=== PATIENT | female | born 1985 | race American Indian/Alaskan Native ===

== ENCOUNTER 2016-12-09 11:51 | Emergency (ER) | payer OTHER ==
--- NOTE | 2016-12-09 12:48 | Emergency Department Report ---
Chief Complaint: Abdominal Pain Stated Complaint: DEHYDRATION/ABD PN/AURELIO/SOB/EMESIS Time Seen by Provider: 12/09/16 12:43 - HPI History of Present Illness: PT states she has been throwing up. PT states she is . pt has a hx of htn while . - ROS Review of Systems: - vaginal bleeding + sob - Exam Physical Exam: PT looks well, non toxic. abd soft, RUQ ttp MSE screening note: Focused history and physical exam performed. Due to findings the following was ordered: labs, us, ekg ED Disposition for MSE Condition: Stable
[2016-12-09 13:16] LABS: Basophils % (Auto) 0.5 % (0.0-1.8); Eosinophils % (Auto) 0.6 % (0.0-4.3); Hematocrit 38.8 % (30.3-42.9); Hemoglobin 12.9 gm/dl (10.1-14.3); Mean Corpuscular HGB Conc 33 % (30-34); Mean Corpuscular Hemoglobin 31 pg (28-32); Mean Corpuscular Volume 94 fl (79-97); Platelet Count 309 K/mm3 (140-440); Red Blood Count 4.13 M/mm3 (3.65-5.03); Red Cell Distribution Width 13.7 % (13.2-15.2); White Blood Count 8.3 K/mm3 (4.5-11.0)
[2016-12-09 13:28] LABS: Alanine Aminotransferase 15 units/L (7-56); Albumin/Globulin Ratio 1.1 %; Alkaline Phosphatase 42 units/L (35-129); Anion Gap 19 mmol/L; Blood Urea Nitrogen 7 mg/dL (7-17); Calcium 9.1 mg/dL (8.4-10.2); Carbon Dioxide 19 mmol/L (22-30); Chloride 97.7 mmol/L (98-107); Glucose 95 mg/dL (65-100); Potassium 3.7 mmol/L (3.6-5.0); Sodium 132 mmol/L (137-145); Total Protein 7.7 g/dL (6.3-8.2)
[2016-12-09 14:42] VITALS: BP 132/86
--- NOTE | 2016-12-09 14:54 | Ultrasound Report ---
ULTRASOUND OB LESS THAN 14 WEEKS FETUS ULTRASOUND OB TRANSVAGINAL HISTORY: Pain during . TECHNIQUE: Transabdominal and transvaginal ultrasound imaging. FINDINGS: The uterus is anteverted and measures 9 x 6 x 7 cm. Normal cervix. An intrauterine gestational sac containing a pole and yolk sac is identified. heart rate measures 177 beats per minute. [place]-rump length measures 20.4 mm which correlates with an 8 week, 4 day . Estimated date 07/17/17. No subchorionic hemorrhage is appreciated. A 1.4 cm simple cyst is noted within the right ovary. The left ovary is within normal limits. No pelvic fluid collection. IMPRESSION: Viable, single intrauterine as described. No acute abnormality is detected. 1.4 cm right ovarian cyst.
[2016-12-09 14:57] LABS: Bacteria,Urine 1+ /HPF (Negative); Bilirubin,Urine NEG (Negative); Blood,Urine MOD (Negative); Ketones,Urine 80 mg/dL (Negative); Leukocyte Esterase,Urine MOD (Negative); Mucus,Urine 3+ /HPF; Nitrite,Urine NEG (Negative)
[2016-12-09] MEDS ORDERED: ZOFRAN IV ONE (15:15)
[2016-12-09] MEDS ORDERED: NACL 0.9% 1000 ML 1,000 ML IV ONE (15:15)
[2016-12-09] MEDS ORDERED: PROVENTIL IH ONE (15:16)
[2016-12-09] MEDS ORDERED: ROCEPHIN/NS 1 GM/50 ML 1 GM/50 ML BAG IV ONE (15:16)
--- NOTE | 2016-12-09 15:17 | Emergency Department Report ---
ED General Adult HPI - General Chief complaint: Dyspnea/Respdistress Stated complaint: DEHYDRATION/ABD PN/AURELIO/SOB/EMESIS Time Seen by Provider: 12/09/16 12:43 Source: patient Mode of arrival: Ambulatory Limitations: No Limitations - History of Present Illness Initial comments: Patient is a 31-year-old female at 8 weeks who presents with nausea vomiting and difficulty breathing. Patient states that her symptoms started yesterday. She states that her shortness of breath is moderate and her nausea and vomiting is severe. She states that she cannot keep anything down. Her shortness of breath started when she started vomiting. And shortness of breath is at rest patient has not tried any [id number] medications for her symptoms. Nothing makes her symptoms better or worse. She denies being in any abdominal pain. She states that she is had nonbloody nonbilious vomiting. She denies having any vaginal discharge or any vaginal bleeding. - Related Data Previous Rx's Medication Instructions Recorded Last Taken Type Doxylamine Succinate [Unisom] 25 mg PO Q6HR PRN #30 tablet 12/09/16 Unknown Rx Nitrofurantoin [place]/M-Cryst 100 mg PO Q12HR #14 capsule 12/09/16 Unknown Rx [Macrobid CAP] Pyridoxine [Vitamin B-6] 50 mg PO BID PRN #30 tablet 12/09/16 Unknown Rx Allergies Allergy/AdvReac Type Severity Reaction Status Date / Time No Known Allergies Allergy Unverified 03/31/16 11:15 ED Review of Systems ROS: Stated complaint: DEHYDRATION/ABD PN/AURELIO/SOB/EMESIS Other details as noted in HPI Constitutional: denies: chills, fever Eyes: denies: eye pain, eye discharge, vision change ENT: denies: ear pain, throat pain Respiratory: SOB at rest. denies: cough, shortness of breath, wheezing Cardiovascular: denies: chest pain, palpitations Endocrine: no symptoms reported Gastrointestinal: nausea. denies: abdominal pain, diarrhea Genitourinary: denies: urgency, dysuria, discharge Musculoskeletal: denies: back pain, joint swelling, arthralgia Skin: denies: rash, lesions Neurological: denies: headache, weakness, paresthesias Psychiatric: denies: anxiety, depression Hematological/Lymphatic: denies: easy bleeding, easy bruising ED Past Medical Hx - Past Medical History Previous Medical History?: Yes Additional medical history: colitis,ovarian cyst, Vaginal delivery x 2 - Surgical History Past Surgical History?: Yes Additional Surgical History: tonsillectomy - Social History Smoking Status: Current Some Day Smoker Substance Use Type: Alcohol, Marijuana - Medications Home Medications: Home Medications Medication Instructions Recorded Confirmed Last Taken Type Doxylamine Succinate [Unisom] 25 mg PO Q6HR PRN #30 tablet 12/09/16 Unknown Rx Nitrofurantoin [place]/M-Cryst 100 mg PO Q12HR #14 capsule 12/09/16 Unknown Rx [Macrobid CAP] Pyridoxine [Vitamin B-6] 50 mg PO BID PRN #30 tablet 12/09/16 Unknown Rx ED Physical Exam - General Limitations: No Limitations General appearance: alert, in no apparent distress - Head Head exam: Present: atraumatic, normocephalic - Eye Eye exam: Present: normal appearance - ENT ENT exam: Present: mucous membranes dry - Neck Neck exam: Present: normal inspection - Respiratory Respiratory exam: Present: normal lung sounds bilaterally, accessory muscle use. Absent: respiratory distress - Cardiovascular Cardiovascular Exam: Present: regular rate, normal rhythm. Absent: systolic murmur, diastolic murmur, rubs, gallop - GI/Abdominal GI/Abdominal exam: Present: soft, normal bowel sounds - Extremities Exam Extremities exam: Present: normal inspection - Back Exam Back exam: Present: normal inspection - Neurological Exam Neurological exam: Present: alert, oriented X3 - Psychiatric Psychiatric exam: Present: normal affect, normal mood - Skin Skin exam: Present: warm, dry, intact, normal color. Absent: rash ED Course Vital Signs 12/09/16 12/09/16 12/09/16 12:44 14:41 15:09 Temperature 98.4 F Pulse Rate 74 86 Pulse Rate [ Anterior Bilateral Throughout] Pulse Rate [ Bilateral Throughout] Respiratory 20 22 Rate Respiratory Rate [Anterior Bilateral Throughout] Respiratory Rate [Bilateral Throughout] Blood Pressure 131/110 Blood Pressure 132/86 [Left] O2 Sat by Pulse 100 100 100 Oximetry 12/09/16 12/09/16 15:38 16:07 Temperature Pulse Rate Pulse Rate [ 64 Anterior Bilateral Throughout] Pulse Rate [ 72 Bilateral Throughout] Respiratory Rate Respiratory 20 Rate [Anterior Bilateral Throughout] Respiratory 20 Rate [Bilateral Throughout] Blood Pressure Blood Pressure [Left] O2 Sat by Pulse Oximetry - Reevaluation(s) Reevaluation #1: 12/09/16 18:38 She is feeling better after fluids and breathing treatment. I will send patient home with Macrobid for her urinary tract infection. ED Medical Decision Making - Lab Data Result diagrams: 12/09/16 12:51 12/09/16 12:51 Lab Results 12/09/16 12/09/16 12/09/16 Range/Units 12:51 12:51 12:51 WBC 8.3 (4.5-11.0) K/mm3 RBC 4.13 (3.65-5.03) M/mm3 Hgb 12.9 (10.1-14.3) gm/dl Hct 38.8 (30.3-42.9) % MCV 94 (79-97) fl MCH 31 (28-32) pg MCHC 33 (30-34) % RDW 13.7 (13.2-15.2) % Plt Count 309 (140-440) K/mm3 Lymph % (Auto) 23.1 (13.4-35.0) % [place] % (Auto) 7.7 H (0.0-7.3) % Eos % (Auto) 0.6 (0.0-4.3) % Baso % (Auto) 0.5 (0.0-1.8) % Lymph # 1.9 (1.2-5.4) K/mm3 [place] # 0.6 (0.0-0.8) K/mm3 Eos # 0.0 (0.0-0.4) K/mm3 Baso # 0.0 (0.0-0.1) K/mm3 Seg Neutrophils % 68.1 (40.0-70.0) % Seg Neutrophils # 5.6 (1.8-7.7) K/mm3 Sodium 132 L (137-145) mmol/L Potassium 3.7 (3.6-5.0) mmol/L Chloride 97.7 L (98-107) mmol/L Carbon Dioxide 19 L (22-30) mmol/L Anion Gap 19 mmol/L BUN 7 (7-17) mg/dL Creatinine 0.5 L (0.7-1.2) mg/dL Estimated GFR > 60 ml/min BUN/Creatinine Ratio 14.00 % Glucose 95 (65-100) mg/dL Calcium 9.1 (8.4-10.2) mg/dL Total Bilirubin 0.60 (0.1-1.2) mg/dL AST 15 (5-40) units/L ALT 15 (7-56) units/L Alkaline Phosphatase 42 (35-129) units/L Total Protein 7.7 (6.3-8.2) g/dL Albumin 4.0 (3.9-5) g/dL Albumin/Globulin Ratio 1.1 % Lipase (13-60) units/L HCG, Quant (0-4) mIU/mL Urine Color (Yellow) Urine Turbidity (Clear) Urine pH (5.0-7.0) Ur Specific [place] (1.003-1.030) Urine Protein (Negative) mg/dL Urine Glucose (UA) (Negative) mg/dL Urine Ketones (Negative) mg/dL Urine Blood (Negative) Urine Nitrite (Negative) Urine Bilirubin (Negative) Urine Urobilinogen (<2.0) mg/dL Ur Leukocyte Esterase (Negative) Urine WBC (Auto) (0.0-6.0) /HPF Urine RBC (Auto) (0.0-6.0) /HPF U Epithel Cells (Auto) (0-13.0) /HPF Urine Bacteria (Auto) (Negative) /HPF Urine Mucus /HPF Blood Type O POSITIVE 12/09/16 12/09/16 12/09/16 Range/Units 12:51 12:51 14:03 WBC (4.5-11.0) K/mm3 RBC (3.65-5.03) M/mm3 Hgb (10.1-14.3) gm/dl Hct (30.3-42.9) % MCV (79-97) fl MCH (28-32) pg MCHC (30-34) % RDW (13.2-15.2) % Plt Count (140-440) K/mm3 Lymph % (Auto) (13.4-35.0) % [place] % (Auto) (0.0-7.3) % Eos % (Auto) (0.0-4.3) % Baso % (Auto) (0.0-1.8) % Lymph # (1.2-5.4) K/mm3 [place] # (0.0-0.8) K/mm3 Eos # (0.0-0.4) K/mm3 Baso # (0.0-0.1) K/mm3 Seg Neutrophils % (40.0-70.0) % Seg Neutrophils # (1.8-7.7) K/mm3 Sodium (137-145) mmol/L Potassium (3.6-5.0) mmol/L Chloride (98-107) mmol/L Carbon Dioxide (22-30) mmol/L Anion Gap mmol/L BUN (7-17) mg/dL Creatinine (0.7-1.2) mg/dL Estimated GFR ml/min BUN/Creatinine Ratio % Glucose (65-100) mg/dL Calcium (8.4-10.2) mg/dL Total Bilirubin (0.1-1.2) mg/dL AST (5-40) units/L ALT (7-56) units/L Alkaline Phosphatase (35-129) units/L Total Protein (6.3-8.2) g/dL Albumin (3.9-5) g/dL Albumin/Globulin Ratio % Lipase 21 (13-60) units/L HCG, Quant 13438 H (0-4) mIU/mL Urine Color Yellow (Yellow) Urine Turbidity Slightly-cloudy (Clear) Urine pH 6.0 (5.0-7.0) Ur Specific [place] 1.032 H (1.003-1.030) Urine Protein 30 mg/dl (Negative) mg/dL Urine Glucose (UA) Neg (Negative) mg/dL Urine Ketones 80 (Negative) mg/dL Urine Blood Mod (Negative) Urine Nitrite Neg (Negative) Urine Bilirubin Neg (Negative) Urine Urobilinogen 4.0 (<2.0) mg/dL Ur Leukocyte Esterase Mod (Negative) Urine WBC (Auto) 8.0 H (0.0-6.0) /HPF Urine RBC (Auto) 11.0 (0.0-6.0) /HPF U Epithel Cells (Auto) 11.0 (0-13.0) /HPF Urine Bacteria (Auto) 1+ (Negative) /HPF Urine Mucus 3+ /HPF Blood Type - EKG Data -: EKG Interpreted by Pa - EKG Data 12/09/16 18:52 EKG shows normal sinus rhythm and normal axis and no ST segment elevations or T- wave inversions. - Radiology Data Radiology results: report reviewed, image reviewed Transvaginal ultrasound: Shows intrauterine at 8 weeks, viable - Medical Decision Making Chief medical diagnosis: Hyperemesis gravidarum Differential medical diagnosis: Urinary tract infection, asthma exacerbation, , ectopic His CBC, CMP, urinalysis, transvaginal ultrasound, IV fluids, IV antibiotics, breathing treatment Patient's laboratory findings are consistent with dehydration her transvaginal ultrasound shows no ectopic and a viable intrauterine . She is feeling better after fluids I will send patient home with Faith and Corin. Critical care attestation.: If time is entered above; I have spent that time in minutes in the direct care of this critically ill patient, excluding procedure time. ED Disposition Clinical Impression: Shortness of breath with , First trimester Urinary tract infection Qualifiers: Urinary tract infection type: acute cystitis Hematuria presence: without hematuria Qualified Code(s): N30.00 - Acute cystitis without hematuria Nausea and vomiting Qualifiers: Vomiting type: unspecified Vomiting Intractability: non-intractable Qualified Code(s): R11.2 - Nausea with vomiting, unspecified Disposition: DC-01 TO HOME OR SELFCARE Is pt being admited?: No Does the pt Need Aspirin: No Condition: Stable Instructions: Morning Sickness (ED), Hyperemesis Gravidarum (ED), (ED ) Prescriptions: Doxylamine Succinate [Unisom] 25 mg PO Q6HR PRN #30 tablet PRN Reason: Nausea Nitrofurantoin [place]/M-Cryst [Macrobid CAP] 100 mg PO Q12HR #14 capsule Pyridoxine [Vitamin B-6] 50 mg PO BID PRN #30 tablet PRN Reason: Nausea Referrals: JANNETH PATTERSON MD [Staff Physician] - 3-5 Days
== END 2016-12-09 19:27 | disposition home or self-care (01) ==
LOC: ED 11:51
DX: O21.9 Vomiting of pregnancy, unspecified (principal); O23.31 Infections of other parts of urinary tract in pregnancy, first trimester; O99.511 Diseases of the respiratory system complicating pregnancy, first trimester; Z3A.08 8 weeks gestation of pregnancy; R06.02 Shortness of breath; N30.00 Acute cystitis without hematuria; R11.0 Nausea; F17.200 Nicotine dependence, unspecified, uncomplicated; F12.10 Cannabis abuse, uncomplicated
CPT/HCPCS: 36415; 76801; 76817; 80053; 81001; 83690; 84702; 85025; 86900; 86901; 93005; 93010; 94640; 96365; 96375; 99284; J0696; J2405; J7030

== ENCOUNTER 2017-01-28 09:55 | Emergency (ER) | payer MEDICAID, OTHER ==
[2017-01-28 10:06] VITALS: BP 120/86
--- NOTE | 2017-01-28 10:06 | Emergency Department Report ---
Stated Complaint: ABD PAIN/15 WKS PREG. Time Seen by Provider: 01/28/17 10:02 - HPI History of Present Illness: PT states she is 15 weeks . PT states she has had lower abd pain x a couple of days. PT states her urine is dark. PT has not seen PRESIDENT AND CMO yet, first appointment is on Friday. - ROS Review of Systems: - fever + chill (After drinking cold water) -dysuria - vaginal bleeding - Exam Physical Exam: pt looks well, non toxic lower abd tenderness MSE screening note: Focused history and physical exam performed. Due to findings the following was ordered: labs, us ED Disposition for MSE Condition: Stable
[2017-01-28 10:26] LABS: Basophils % (Auto) 0.5 % (0.0-1.8); Eosinophils % (Auto) 1.2 % (0.0-4.3); Hematocrit 36.7 % (30.3-42.9); Hemoglobin 12.3 gm/dl (10.1-14.3); Mean Corpuscular HGB Conc 34 % (30-34); Mean Corpuscular Hemoglobin 32 pg (28-32); Mean Corpuscular Volume 94 fl (79-97); Platelet Count 268 K/mm3 (140-440); Red Cell Distribution Width 13.9 % (13.2-15.2); White Blood Count 8.3 K/mm3 (4.5-11.0)
[2017-01-28 10:34] LABS: Bacteria,Urine 1+ /HPF (Negative); Bilirubin,Urine NEG (Negative); Blood,Urine SM (Negative); Ketones,Urine NEG (Negative); Leukocyte Esterase,Urine LG (Negative); Mucus,Urine 2+ /HPF; Nitrite,Urine NEG (Negative)
[2017-01-28 10:46] LABS: Alanine Aminotransferase 44 units/L (7-56); Albumin 3.6 g/dL (3.9-5); Albumin/Globulin Ratio 1.1 %; Alkaline Phosphatase 57 units/L (35-129); Anion Gap 15 mmol/L; BUN/Creatinine Ratio 13; Blood Urea Nitrogen 9 mg/dL (7-17); Calcium 8.7 mg/dL (8.4-10.2); Carbon Dioxide 22 mmol/L (22-30); Chloride 100.5 mmol/L (98-107); Glucose 87 mg/dL (65-100); Potassium 3.9 mmol/L (3.6-5.0); Sodium 134 mmol/L (137-145); Total Protein 6.9 g/dL (6.3-8.2)
--- NOTE | 2017-01-28 13:03 | Ultrasound Report ---
OB ULTRASOUND History: 15 weeks , abdominal pain for 5 days Technique: Transabdominal ultrasound with Doppler interrogation. Gestation: Single Position: Breech Amniotic Fluid: Within normal limits Placenta: Posterior, marginal previa Placental Grade: 0 Heart Rate: 157 BPM Cervical length: 3.2 cm (Normal > 3 cm) BPD: 3.2 cm = 16 w 1 d HC: 12.1 cm = 16 w 0 d AC: 10.5 cm = 16 w 3 d FL: 1.8 cm = 15 w 3 d HC/AC Ratio: 1.15 Cephalic Index: 77.0 Estimated Weight: 139 grams Clinical age = 15 w 5 d EDC: 07/17/17 US Gest. Age = 16 w 0 d EDC: 07/15/17 Impression: No acute abnormality detected.
--- NOTE | 2017-01-28 16:25 | Emergency Department Report ---
HPI - General Chief Complaint: Abdominal Pain Time Seen by Provider: 01/28/17 10:02 - HPI HPI: This is a 31-year-old female presents to the emergency department with complaint of some left-sided abdominal pain that has been going on for the past few days. Patient is currently about 15 weeks . She is not taking anything for her symptoms prior to presentation. She denies any vaginal bleeding, dysuria, vaginal discharge, nausea, vomiting or fever. She has a past medical history of colitis, ovarian cyst. She has her first OB appointment coming up this Friday through . No recent travel or sick contacts at home. She is not currently on vitamins. ED Past Medical Hx - Past Medical History Previous Medical History?: Yes Additional medical history: colitis,ovarian cyst, Vaginal delivery x 2 - Surgical History Past Surgical History?: Yes Additional Surgical History: tonsillectomy - Social History Smoking Status: Never Smoker Substance Use Type: None - Medications Home Medications: Home Medications Medication Instructions Recorded Confirmed Last Taken Type Doxylamine Succinate [Unisom] 25 mg PO Q6HR PRN #30 tablet 12/09/16 Unknown Rx Pyridoxine [Vitamin B-6] 50 mg PO BID PRN #30 tablet 12/09/16 Unknown Rx Nitrofurantoin [place]/M-Cryst 100 mg PO Q12HR #10 capsule 01/28/17 Unknown Rx [Macrobid CAP] Vit-Fe Fumar-FA [ 1 tab PO QDAY #30 tablet 01/28/17 Unknown Rx Vitamin] ED Review of Systems ROS: Stated complaint: ABD PAIN/15 WKS PREG. Other details as noted in HPI Comment: All other systems reviewed and negative Constitutional: denies: chills, fever Eyes: denies: eye pain, eye discharge, vision change ENT: denies: ear pain, throat pain Respiratory: denies: cough, shortness of breath, wheezing Cardiovascular: denies: chest pain, palpitations Gastrointestinal: abdominal pain. denies: nausea, vomiting Genitourinary: denies: urgency, dysuria, discharge Musculoskeletal: denies: back pain, joint swelling, arthralgia Skin: denies: rash, lesions Neurological: denies: headache, weakness, paresthesias Physical Exam - Physical Exam Vital Signs: Vital Signs 01/28/17 01/28/17 10:04 14:41 Temperature 98 F Pulse Rate 103 H Respiratory 16 18 Rate Blood Pressure 120/86 O2 Sat by Pulse 99 Oximetry Physical Exam: GENERAL: The patient is well-developed well-nourished. HENT: Normocephalic. Atraumatic. Patient has moist mucous membranes. EYES: Extraocular motions are intact. Pupils equal reactive to light bilaterally. NECK: Supple. Trachea is midline. CHEST/LUNGS: Clear to auscultation. There is no respiratory distress noted. HEART/CARDIOVASCULAR: Regular. There is no tachycardia. There is no gallop rub or murmur. ABDOMEN: Abdomen is soft. Unable to reproduce the left mid to lower quadrant abdominal pain to palpation. No guarding rebound tenderness. Patient has normal bowel sounds. SKIN: Skin is warm and dry. NEURO: The patient is awake, alert, and oriented. The patient is cooperative. The patient has no focal neurologic deficits. The patient has normal speech. MUSCULOSKELETAL: There is no tenderness or deformity. There is no limitation range of motion. There is no evidence of acute injury. ED Course Vital Signs 01/28/17 01/28/17 10:04 14:41 Temperature 98 F Pulse Rate 103 H Respiratory 16 18 Rate Blood Pressure 120/86 O2 Sat by Pulse 99 Oximetry ED Medical Decision Making - Lab Data Result diagrams: 01/28/17 10:14 01/28/17 10:14 - Radiology Data Radiology results: report reviewed OB ULTRASOUND History: 15 weeks , abdominal pain for 5 days Technique: Transabdominal ultrasound with Doppler interrogation. Gestation: Single Position: Breech Amniotic Fluid: Within normal limits Placenta: Posterior, marginal previa Placental Grade: 0 Heart Rate: 157 BPM Cervical length: 3.2 cm (Normal > 3 cm) BPD: 3.2 cm = 16 w 1 d HC: 12.1 cm = 16 w 0 d AC: 10.5 cm = 16 w 3 d FL: 1.8 cm = 15 w 3 d HC/AC Ratio: 1.15 Cephalic Index: 77.0 Estimated Weight: 139 grams Clinical age = 15 w 5 d EDC: 07/17/17 US Gest. Age = 16 w 0 d EDC: 07/15/17 Impression: No acute abnormality detected. Transcribed By: TTR Dictated By: PRAKASH FRIAS JR, MD Electronically Authenticated By: PRAKASH FRIAS JR, MD Signed Date/Time: 01/28/17 1300 - Medical Decision Making 31-year-old female who is about 15 weeks presents with some left mid to lower quadrant abdominal pain. She has no vaginal bleeding, discharge, dysuria. Labs are mostly unremarkable. She only has 9 white blood cells in her urine but it does say that there is large leukocyte Estrace and therefore the patient will be treated for a mild urinary tract infection. Ultrasound shows a live intrauterine at about 16 weeks. Vital signs stable E course including being afebrile. She has an appointment with her PILOT SAFETY INSPECTOR this coming Friday. She will return to the ER with any worsening of her symptoms or any acute distress. - Differential Diagnosis , miscarriage, UTI, round ligament pain, ovarian cyst Critical Care Time: No Critical care attestation.: If time is entered above; I have spent that time in minutes in the direct care of this critically ill patient, excluding procedure time. ED Disposition Clinical Impression: Qualifiers: Weeks of gestation: 16 weeks Qualified Code(s): Z3A.16 - 16 weeks gestation of UTI (urinary tract infection) Qualifiers: Urinary tract infection type: acute cystitis Hematuria presence: without hematuria Qualified Code(s): N30.00 - Acute cystitis without hematuria Abdominal pain Qualifiers: Abdominal location: unspecified location Qualified Code(s): R10.9 - Unspecified abdominal pain Disposition: TO HOME OR SELFCARE Is pt being admited?: No Condition: Stable Instructions: (ED), Urinary Tract Infection in Women (ED), Abdominal Pain (ED) Additional Instructions: Please follow-up with your PILOT SAFETY INSPECTOR on Friday as previously planned. Return to the emergency Department with any worsening of your symptoms, any vaginal bleeding, or any acute distress. He can take Tylenol every 4 hours as needed, using weight-based dosing. Prescriptions: Nitrofurantoin [place]/M-Cryst [Macrobid CAP] 100 mg PO Q12HR #10 capsule Vit-Fe Fumar-FA [ Vitamin] 1 tab PO QDAY #30 tablet Referrals: PRIMARY CAREMD [Primary Care Provider] - 3-5 Days Time of Disposition: 16:24
== END 2017-01-28 16:38 | disposition home or self-care (01) ==
LOC: ED 09:55
DX: O26.892 Other specified pregnancy related conditions, second trimester (principal); O23.42 Unspecified infection of urinary tract in pregnancy, second trimester; N30.00 Acute cystitis without hematuria; R10.9 Unspecified abdominal pain; Z3A.16 16 weeks gestation of pregnancy
CPT/HCPCS: 36415; 76805; 80053; 81001; 84702; 85025; 87086

== ENCOUNTER 2017-10-29 00:08 | Emergency (ER) | payer OTHER, MEDICAID ==
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
[2017-10-29] MEDS ORDERED: NORCO 5/325 PO ONE (08:13)
[2017-10-29] MEDS ORDERED: FLEXERIL PO ONE (08:13)
[2017-10-29 09:31] VITALS: BP 120/70
== END 2017-10-29 09:29 | disposition home or self-care (01) ==
LOC: ED 00:08
DX: S16.1XXA Strain of muscle, fascia and tendon at neck level, initial encounter (principal); R10.30 Lower abdominal pain, unspecified; M62.830 Muscle spasm of back; Z90.49 Acquired absence of other specified parts of digestive tract; Z98.51 Tubal ligation status; V49.09XA Driver injured in collision with other motor vehicles in nontraffic accident, initial encounter; Y93.89 Activity, other specified; Y99.8 Other external cause status; Y92.488 Other paved roadways as the place of occurrence of the external cause
CPT/HCPCS: 99282

== ENCOUNTER 2018-04-14 10:09 | Emergency (ER) | payer MEDICAID ==
[2018-04-14 10:51] LABS: HCG Qualitative,Urine Negative (Negative)
[2018-04-14 10:53] LABS: Bilirubin,Urine NEG (Negative); Blood,Urine MOD (Negative); Color,Urine Yellow (Yellow); Mucus,Urine 1+ /HPF; Protein,Urine <15 mg/dL mg/dL (Negative)
[2018-04-14 11:00] LABS: Basophils # (Auto) 0.1 K/mm3 (0.0-0.1); Basophils % (Auto) 0.9 % (0.0-1.8); Eosinophils # (Auto) 0.1 K/mm3 (0.0-0.4); Hematocrit 38.5 % (30.3-42.9); Hemoglobin 12.7 gm/dl (10.1-14.3); Lymphocytes # (Auto) 2.4 K/mm3 (1.2-5.4); Lymphocytes % (Auto) 36.4 % (13.4-35.0); Mean Corpuscular HGB Conc 33 % (30-34); Mean Corpuscular Volume 95 fl (79-97); Monocytes # (Auto) 0.7 K/mm3 (0.0-0.8); Platelet Count 252 K/mm3 (140-440); Red Blood Count 4.05 M/mm3 (3.65-5.03); Red Cell Distribution Width 15.5 % (13.2-15.2)
--- NOTE | 2018-04-14 11:01 | Emergency Department Report ---
ED Abdominal Pain HPI - General Chief Complaint: Abdominal Pain Stated Complaint: ABD/BACK PAIN Time Seen by Provider: 04/14/18 10:32 Source: patient Mode of arrival: Ambulatory Limitations: No Limitations - History of Present Illness Initial Comments: Maldonado is a 32-year-old -[place] female who comes to the ER today complaining of right flank pain for 3 days. She has no nausea vomiting or diarrhea. Her pain is of her right upper quadrant but when you ask her about radiation she uses her hand to demonstrate flank radiation from the back around to the front. Patient is morbidly obese. She is eating during the triage process. She is ambulatory. Vital signs are stable she is afebrile MD Complaint: abdominal pain -: days(s) (3) Location: RUQ, R flank Radiation: none Migration to: no migration Severity: mild Consistency: intermittent Improves With: nothing Worsens With: nothing - Related Data Previous Rx's Medication Instructions Recorded Last Taken Type Apixaban [Eliquis] 5 mg PO BID #60 tablet 04/14/18 Unknown Rx Allergies Allergy/AdvReac Type Severity Reaction Status Date / Time No Known Allergies Allergy Verified 10/29/17 01:22 ED Review of Systems ROS: Stated complaint: ABD/BACK PAIN Other details as noted in HPI Comment: All other systems reviewed and negative Constitutional: denies: chills Eyes: denies: eye pain ENT: denies: throat pain Respiratory: denies: cough Cardiovascular: denies: chest pain Gastrointestinal: as per HPI, abdominal pain, diarrhea (PER TRIAGE NOTE ). denies: nausea, vomiting Genitourinary: dysuria (PER TRIAGE NOTE), other (TUBAL; DEPO 4-18 NO MENSES). denies: as per HPI, urgency Musculoskeletal: denies: as per HPI Skin: denies: rash Neurological: denies: headache Psychiatric: denies: anxiety Hematological/Lymphatic: denies: easy bleeding ED Past Medical Hx - Past Medical History Previous Medical History?: Yes Additional medical history: colitis,ovarian cyst, Vaginal delivery x 2 - Surgical History Past Surgical History?: Yes Additional Surgical History: tonsillectomy. tubal. tubaligation - Family History Family history: no significant - Social History Smoking Status: Never Smoker Substance Use Type: Alcohol - Medications Home Medications: Home Medications Medication Instructions Recorded Confirmed Last Taken Type Apixaban [Eliquis] 5 mg PO BID #60 tablet 04/14/18 Unknown Rx ED Physical Exam - General Limitations: No Limitations General appearance: alert - Head Head exam: Present: atraumatic - Eye Eye exam: Present: normal appearance Pupils: Present: normal accommodation - ENT ENT exam: Present: normal exam - Neck Neck exam: Present: normal inspection - Respiratory Respiratory exam: Present: normal lung sounds bilaterally - Cardiovascular Cardiovascular Exam: Present: regular rate - GI/Abdominal GI/Abdominal exam: Present: soft, tenderness (RUQ), normal bowel sounds, other (TENDER RUQ). Absent: distended - Rectal Rectal exam: Present: deferred - Extremities Exam Extremities exam: Present: normal inspection, full ROM - Back Exam Back exam: Present: normal inspection, full ROM - Neurological Exam Neurological exam: Present: alert, oriented X3 - Psychiatric Psychiatric exam: Present: normal affect, normal mood - Skin Skin exam: Present: warm, dry, intact ED Course Vital Signs 04/14/18 10:14 Temperature 97.7 F Pulse Rate 87 Respiratory 16 Rate Blood Pressure 127/89 O2 Sat by Pulse 100 Oximetry ED Medical Decision Making - Lab Data Result diagrams: 04/14/18 10:42 04/14/18 10:42 - Radiology Data Radiology results: report reviewed, image reviewed - Medical Decision Making LIPASE NORMAL BLOOD NOTED IN URINE NEG PREG- HAD TUBAL SHE HAS HAD SOME DYSURIA AND DIARRHEA EARLIER IN WEEK SHE HAS NOT HAD MENSES SINCE 4-18 P DEPO GIVEN FINDINGS WILL DO CT TO RO K STONE CT NEG FOR STONE BUT ? THROMBOSED OVARIAN VEIN 1500 CT REPEATED W CONTRAST TO FURTHER EVAL ? THROMBUS PT IS OBESE, GOT DEPO INJECTION IN JULY; SP TUBAL THIS PAST SUMMER CT ABD/PELVIS WITH CONTRAST CONFIRMS THROMBOSED OVARIAN VEIN [address] F[address] DUTTA. FROM AN OBGYN PERSPECTIVE NOTHING TO BE DONE BUT PT MAY NEED EVALUATED FROM A HEME PERSPECTIVE. DISCUSSED WITH DR JUAREZ DISCUSSED WITH DR NATALIE ESTRADA WILL COME TO EVALUATE THE PATIENT AND DISCUSS WITH US PLAN 1600 DR ESTRADA HAS BEEN CONSULTED AND HIS RECOMMENDATION IS TO DC ON ELOQUIS WITH FOLLOW UP PT HAS BEEN EDUCATED GIVEN RX AND COUPON FOR ELOQUIS - AND FOLLOW UP INSTRUCTIONS COAGS WERE SENT PRIOR TO DC ON ELOQUIS VSS ON DC STABLE PT WITHOUT CP OR SOB - Differential Diagnosis RO CHOLEY/ RO K STONE Critical care attestation.: If time is entered above; I have spent that time in minutes in the direct care of this critically ill patient, excluding procedure time. ED Disposition Clinical Impression: Thrombosis of ovarian vein, Abdominal pain Disposition: TO HOME OR SELFCARE Is pt being admited?: No Does the pt Need Aspirin: No Condition: Stable Instructions: Abdominal Pain (ED) Additional Instructions: REST HYDRATE WELL WITH WATER MEDS ORDERED FOLLOW UP WITH PCP AND HEMATOLOGY WOULD BE THE FIRST MD TO SEE REFERRAL GIVEN BELOW CALL IN AM AND MAKE APPNT TELL THEM YOU WERE HERE AND THAT WE REFERRED YOU AFTER PLACING YOU ON ELOQUIS TAKE ELOQUIS INSTRUCTED USE PHARMACY CARD TO OBTAIN ACTIVITY TOLERATED Prescriptions: Apixaban [Eliquis] 5 mg PO BID #60 tablet Referrals: PRIMARY CARE, [Primary Care Provider] - 3-5 Days JANNETH PATTERSON MD [Staff Physician] - 3-5 Days REJI SRIVASTAVA MD [Referring] - 3-5 Days LORENA BENJAMIN MD [Referring] - 3-5 Days VALENTINA CEJA MD [Referring] - 3-5 Days CLEO TOMLINSON MD [Referring] - 3-5 Days Time of Disposition: 11:22
[2018-04-14 11:17] LABS: Alanine Aminotransferase 17 units/L (7-56); BUN/Creatinine Ratio 16; Blood Urea Nitrogen 11 mg/dL (7-17); Calcium 8.9 mg/dL (8.4-10.2); Hemolysis Index 9
--- NOTE | 2018-04-14 13:29 | Cat Scan Report ---
FINAL REPORT EXAM: CT ABDOMEN PELVIS WO CON HISTORY: R FLANK PAIN TECHNIQUE: CT of the abdomen and pelvis without IV contrast. Coronal and sagittal reconstructed imag ing provided. PRIORS: None currently available. FINDINGS: ABDOMEN: Liver, gallbladder, stomach, spleen, pancreas, and adrenals are unremarkable. Kidneys: No hydronephrosis. No renal stones. Cortical cyst in the inferior left kidney measures 3.8 c m. Right ureter is not clearly identified because of the nearby stranding and heterogeneous dense tub ular structure. Anterior to the IVC and the right psoas muscle extending from the kidney down to the bladder is a het erogeneous dense tubular structure measuring 1.6 cm in diameter with surrounding stranding. The appea jenna and location is atypical for ureter. Findings may represent a thrombosed ovarian vein. Evaluati on limited by the lack of intravenous contrast. Mild mass effect on the IVC. No periaortic or retrope ritoneal adenopathy. No abdominal aortic aneurysm. [id number] stool. No wall thickening or inflammatory changes. Terminal ileum is unremarkable. Appendix is normal. Small bowel loops are unremarkable. No obstructive pattern. Mesentery is unremarkable. No free air. Trace fluid in the right colonic gutter. PELVIS: Bladder is unremarkable. No wall thickening. No stones. Limited CT images of the uterus are unremarkable. There is no pelvic mass or adenopathy. Inguinal regions are unremarkable. Bones: No suspicious osseous lesions on this limited examination of the skeleton. Metastatic disease better evaluated with bone scan. IMPRESSION: Heterogeneously dense tubular structure extending from the level of the kidney down to the pelvis is suspicious for thrombosed ovarian vein. Differential diagnosis would include tumor or significantly d ilated ureter. Dilated ureter is unlikely given the lack of hydronephrosis or right renal findings. C T abdomen pelvis with IV contrast and delayed images may be helpful if clinically indicated. Left renal cyst.
[2018-04-14] MEDS ORDERED: ALUM-MAG HYDROX-SIMETH 200-200-20MG/5ML PO ONE (13:34)
[2018-04-14] MEDS ORDERED: LIDOCAINE VISCOUS 2% PO ONE (13:35)
--- NOTE | 2018-04-14 14:19 | Cat Scan Report ---
CT ABDOMEN PELVIS WITH CONTRAST: HISTORY: abdominal pain. COMPARISON: CT abdomen pelvis without contrast performed earlier the same day. TECHNIQUE: Helical CT in 1.25mm intervals following IV contrast. Sagittal and coronal reconstructions. FINDINGS: Thrombosis of the right ovarian vein is demonstrated. The thrombus extends into the infrahepatic IVC. The remaining venous structures are patent and within normal limits. The liver, biliary system, pancreas, spleen, kidneys and adrenal glands are unremarkable. 3.3 cm left ovarian cyst is noted. No evidence for bowel obstruction or focal inflammation. Normal appendix. The uterus, ovaries and bladder are unremarkable. IMPRESSION: Right ovarian vein thrombosis. Thrombophlebitis cannot be excluded.
[2018-04-14] MEDS ORDERED: ELIQUIS PO ONE (16:21)
[2018-04-14 16:45] VITALS: BP 115/75
[2018-04-14] MEDS ORDERED: NORCO 10/325 PO ONE (16:45)
[2018-04-14 16:53] LABS: INR 1.06 (0.87-1.13)
== END 2018-04-14 17:11 | disposition home or self-care (01) ==
LOC: ED 10:09
DX: I82.890 Acute embolism and thrombosis of other specified veins (principal); E66.01 Morbid (severe) obesity due to excess calories; Z98.51 Tubal ligation status; Z90.89 Acquired absence of other organs; Z68.41 Body mass index [BMI] 40.0-44.9, adult
CPT/HCPCS: 36415; 74176; 74177; 80053; 81001; 81025; 83690; 85025; 85610; 85730; 99284; Q9967

== ENCOUNTER 2018-04-27 23:48 | Emergency (ER) | payer MEDICAID ==
[2018-04-28] MEDS ORDERED: IBUPROFEN PO ONE (02:43)
--- NOTE | 2018-04-28 02:49 | Emergency Department Report ---
<OPHELIA GOODWIN - Last Filed: 04/28/18 05:47> - General Chief Complaint: Upper Respiratory Infection Stated Complaint: FLU LIKE SX Time Seen by Provider: 04/28/18 02:33 Source: patient Mode of arrival: Ambulatory Limitations: No Limitations - History of Present Illness Initial Comments: 32-year-old -F[place] female presents to the emergency room for throbbing headache bodyaches that started 2 days ago. He reports that she had taken Motrin at 10 AM on Friday morning and 4 PM Friday afternoon. Patient reports that she's been having hot and cold flashes. She also complains of a cough with chest pain worse with cough. Patient has not taken any Tylenol today. 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 Patient reports she has not followed up with a surgical garment inspector and just made an appointment yesterday. MD Complaint: cough Associated Symptoms: headache, chest pain (with) Treatments Prior to Arrival: Ibuprofen - Related Data Previous Rx's Medication Instructions Recorded Last Taken Type Apixaban [Eliquis] 5 mg PO BID #60 tablet 04/14/18 Unknown Rx Allergies Allergy/AdvReac Type Severity Reaction Status Date / Time No Known Allergies Allergy Verified 10/29/17 01:22 ED Review of Systems Comment: All other systems reviewed and negative Respiratory: cough Cardiovascular: chest pain Neurological: headache ED Past Medical Hx - Past Medical History Previous Medical History?: Yes Additional medical history: colitis,ovarian cyst, Vaginal delivery x 2 - Surgical History Past Surgical History?: Yes Additional Surgical History: tonsillectomy. tubal. tubaligation - Social History Smoking Status: Never Smoker Substance Use Type: Alcohol - Medications Home Medications: Home Medications Medication Instructions Recorded Confirmed Last Taken Type Apixaban [Eliquis] 5 mg PO BID #60 tablet 04/14/18 Unknown Rx ED Physical Exam - General Limitations: No Limitations General appearance: alert, in no apparent distress - Head Head exam: Present: atraumatic, normocephalic - Eye Eye exam: Present: normal appearance - ENT ENT exam: Present: mucous membranes moist, TM's normal bilaterally - Neck Neck exam: Present: normal inspection, full ROM - Respiratory Respiratory exam: Present: normal lung sounds bilaterally. Absent: respiratory distress - Cardiovascular Cardiovascular Exam: Present: regular rate, normal rhythm. Absent: systolic murmur, diastolic murmur, rubs, gallop - GI/Abdominal GI/Abdominal exam: Present: soft, normal bowel sounds - Neurological Exam Neurological exam: Present: alert, oriented X3 - Psychiatric Psychiatric exam: Present: normal affect, normal mood - Skin Skin exam: Present: warm, dry, intact, normal color. Absent: rash ED Medical Decision Making - Medical Decision Making Patient has been evaluated by this provider in fast track. Patient had ibuprofen for pain management Urinalysis, urine tests Negative rapid influenza CT without contrast of head and CTA of chest since patient is having throbbing headache in chest pain with cough. Patient is currently being treated for ovarian thrombosis and is currently on Eliquis 5 mg bid. Discussed case with Dr. Helton. ED Disposition Clinical Impression: Viral illness, Elevated blood pressure reading Disposition: - TO HOME OR SELFCARE Condition: Stable Instructions: Viral Syndrome (ED) Additional Instructions: Rest HYDRATE with water Continue taking YOUR DAILY ELOQUIS MONITOR YOUR BLOOD PRESSURE. LOW FAT AND LOW SALT DIET WITH WEIGHT LOSS WILL HELP Follow-up with your primary care physician. You were given ONE the last time YOU WERE in the emergency room. YOU HAVE ANOTHER REFERRAL TODAY- SEE BELOW Follow-up with surgical garment inspector as arranged during her last ER visit OVER THE COUNTER COLD MEDICINES FOR SYMPTOM RELIEF LABS AND CTA ALL NORMAL Referrals: PRIMARY MD SYED [Primary Care Provider] - 3-5 Days JANNETH PATTERSON MD [Staff Physician] - 3-5 Days <HANNAH OSORIO - Last Filed: 04/28/18 07:43> ED Review of Systems ROS: Stated complaint: FLU LIKE SX Other details as noted in HPI ED Course Vital Signs 04/27/18 04/27/18 04/28/18 23:52 23:53 05:24 Temperature 99.8 F H 99.8 F H Pulse Rate 91 H 91 H Respiratory 18 18 20 Rate Blood Pressure 155/101 155/101 O2 Sat by Pulse 96 97 Oximetry 04/28/18 05:59 Temperature Pulse Rate Respiratory 20 Rate Blood Pressure O2 Sat by Pulse Oximetry - Reevaluation(s) Reevaluation #1: 04/28/18 07:[address] normal ED Medical Decision Making - Lab Data Result diagrams: 04/28/18 07:17 - Radiology Data Radiology results: report reviewed CTA and CT head normal - Differential Diagnosis ro PE and intracranial process Critical care attestation.: If time is entered above; I have spent that time in minutes in the direct care o f this critically ill patient, excluding procedure time. ED Disposition Is pt being admited?: No Does the pt Need Aspirin: No Time of Disposition: 07:42
[2018-04-28 05:13] LABS: Bilirubin,Urine NEG (Negative); Blood,Urine SM (Negative); Color,Urine Yellow (Yellow); Mucus,Urine FEW /HPF; Protein,Urine <15 mg/dL mg/dL (Negative); Urobilinogen,Urine < 2.0 mg/dL (<2.0); WBC,Urine < 1.0 /HPF (0.0-6.0)
[2018-04-28 05:24] LABS: HCG Qualitative,Urine Negative (Negative)
[2018-04-28] MEDS ORDERED: IBUPROFEN ONE (05:25)
--- NOTE | 2018-04-28 05:56 | XRay Report ---
FINAL REPORT EXAM: XR CHEST ROUTINE 2V HISTORY: cough with pain in chest with cough. TECHNIQUE: PA and lateral chest radiographs PRIORS: None. FINDINGS: No mediastinal shift. Cardiac silhouette is not enlarged. No pneumothorax, effusion, or focal pulmon mynor opacity. No acute skeletal finding. IMPRESSION: No focal pulmonary opacity.
--- NOTE | 2018-04-28 07:13 | Cat Scan Report ---
FINAL REPORT EXAM: CT HEAD/BRAIN WO CON HISTORY: throbbing PHAM with recent diagnosis of clot to ovar TECHNIQUE: CT imaging acquired through the head without intravenous contrast. Transaxial reformatio ns are provided. PRIORS: None. FINDINGS: The ventricles, cisterns and sulci are normal. No intraparenchymal or extra-axial mass, hemorrhage, o r mass effect. Fraire and white-matter differentiation is normal. Normal spherical shape of the globes. Paranasal sinuses and mastoid air cells are clear. No skull or facial fracture visualized. IMPRESSION: No acute intracranial abnormality.
[2018-04-28 07:30] LABS: Basophils # (Auto) 0.1 K/mm3 (0.0-0.1); Basophils % (Auto) 1.3 % (0.0-1.8); Eosinophils % (Auto) 0.4 % (0.0-4.3); Hematocrit 39.3 % (30.3-42.9); Lymphocytes # (Auto) 2.7 K/mm3 (1.2-5.4); Lymphocytes % (Auto) 30.7 % (13.4-35.0); Mean Corpuscular HGB Conc 33 % (30-34); Mean Corpuscular Volume 94 fl (79-97); Monocytes # (Auto) 0.7 K/mm3 (0.0-0.8); Monocytes % (Auto) 7.6 % (0.0-7.3); Platelet Count 348 K/mm3 (140-440); Red Blood Count 4.17 M/mm3 (3.65-5.03); Red Cell Distribution Width 15.1 % (13.2-15.2)
--- NOTE | 2018-04-28 07:31 | Cat Scan Report ---
FINAL REPORT EXAM: CT ANGIO CHEST HISTORY: throbbing PHAM with recent diagnosis of clot to ovar TECHNIQUE: CT imaging obtained through the chest in pulmonary angiographic phase following intraveno us administration of contrast. Transaxial, Coronal and sagittal reformats with maximal intensity proj ections are provided. PRIORS: Chest radiographs of the same date FINDINGS: Normal caliber main pulmonary artery. No central or segmental pulmonary embolism. Insufficient opacif ication of the more peripheral portions of the pulmonary arterial tree for more detailed evaluation o f pulmonary embolism. No pericardial effusion. Thoracic aorta is normal in course and caliber. No periaortic fluid or stranding. No pneumothorax, effusion or focal airspace disease. The central airways are patent. No bronchiectasi s. Imaged portion of the upper abdomen is unremarkable. The superficial soft tissues are unremarkable. No acute bony abnormality or worrisome osseous lesions identified. IMPRESSION: No central or segmental pulmonary embolism or other acute finding.
[2018-04-28 07:51] VITALS: BP 142/96
[2018-04-28 08:33] LABS: Alanine Aminotransferase 10 units/L (7-56); Albumin 4.1 g/dL (3.9-5); BUN/Creatinine Ratio 16; Blood Urea Nitrogen 11 mg/dL (7-17); Hemolysis Index 16
== END 2018-04-28 07:52 | disposition home or self-care (01) ==
LOC: ED 23:48
DX: B34.9 Viral infection, unspecified (principal); R03.0 Elevated blood-pressure reading, without diagnosis of hypertension; Z98.51 Tubal ligation status
CPT/HCPCS: 36415; 70450; 71046; 71275; 80053; 81001; 81025; 85025; 87400; 99284; Q9967

== ENCOUNTER 2018-05-29 15:02 | Emergency (ER) | payer MEDICAID ==
--- NOTE | 2018-05-29 15:20 | Emergency Department Report ---
Chief Complaint: Upper Respiratory Infection Stated Complaint: FLU LIKE SYM Time Seen by Provider: 05/29/18 15:16 - HPI History of Present Illness: Here with family all with the same cold cough congestion VSS non toxic MSE completed - Exam Vital Signs: Vital Signs 05/29/18 15:17 Temperature 98.5 F Pulse Rate 104 H Respiratory 16 Rate Blood Pressure 122/83 O2 Sat by Pulse 99 Oximetry MSE screening note: Focused history and physical exam performed. Due to findings the following was ordered: ED Disposition for MSE Condition: Stable
[2018-05-29] MEDS ORDERED: DELTASONE PO ONE (20:24)
--- NOTE | 2018-05-29 20:24 | Emergency Department Report ---
Minor Respiratory - HPI Chief Complaint: Upper Respiratory Infection Stated Complaint: FLU LIKE SYM Time Seen by Provider: 05/29/18 15:16 Duration: Today Pain Location: Throat Severity: mild Minor Respiratory: Yes Rhinorrhea (nasal congestion and runny nose), Yes Sore Throat (sore throat 2/10), Yes Able to Tolerate Fluids, Yes Cough (dry cough worse at night), Yes Sick Contacts (children), No Ear Pain (clogged ear sensation), No Hemoptysis, No Chest Pain, No Shortness of Breath, No Fever Other History: This is a 32-year-old female here reported that she is having cough congestion sore throat started today. She has not taken any medication. Denies any fever chills or nausea or vomiting. Denies any abdominal or back pain. Denies any shortness of breath or chest pain. She thinks she got from her younger kids. Denies any headache, drooling. earache. ED Review of Systems ROS: Stated complaint: FLU LIKE SYM Other details as noted in HPI Constitutional: denies: chills, fever Eyes: denies: eye pain, eye discharge ENT: throat pain, congestion. denies: ear pain Respiratory: cough. denies: shortness of breath, wheezing Cardiovascular: denies: chest pain, palpitations, edema, syncope Gastrointestinal: denies: abdominal pain, nausea, vomiting Genitourinary: denies: hematuria Musculoskeletal: denies: back pain, arthralgia, myalgia Skin: denies: rash Neurological: denies: headache, vertigo ED Past Medical Hx - Past Medical History Previous Medical History?: Yes Additional medical history: colitis,ovarian cyst, Vaginal delivery x 2 - Surgical History Past Surgical History?: Yes Additional Surgical History: tonsillectomy. tubal. tubaligation - Family History Family history: hypertension - Social History Smoking Status: Never Smoker Substance Use Type: Alcohol - Medications Home Medications: Home Medications Medication Instructions Recorded Confirmed Last Taken Type Apixaban [Eliquis] 5 mg PO BID #60 tablet 04/14/18 Unknown Rx Cetirizine HCl [ZyrTEC] 10 mg PO QAM 14 Days #14 capsule 05/29/18 Unknown Rx Fluticasone [Flonase] 1 spray NS QDAY 14 Days #1 bottle 05/29/18 Unknown Rx Ibuprofen [Motrin] 800 mg PO Q8HR PRN #12 tablet 05/29/18 Unknown Rx methylPREDNISolone [Medrol Dose 4 mg PO DAILY #1 tab.ds.pk 05/29/18 Unknown Rx [place]] Minor Respiratory Exam - Exam General: Vital signs noted. No distress. Alert and acting appropriately. This is a 32-year-old female well-nourished well-developed in no acute distress. HEENT: Yes Moist Mucous Membranes (uvula midline and oral airways patent), Yes Rhinorrhea (congested with clear drainage. Erythema), No Pharyngeal Erythema, No Pharyngeal Exudates, No Conjuctival Injection, No Frontal Tenderness, No Maxillary Tenderness Ear: Neither TM Bulge (bilateral came congested), Neither TM Erythema, Neither EAC Pain, Neither EAC Discharge Neck: Yes Supple (full range of motion and no C-spine tenderness), No Adenopathy Lungs: Yes Good Air Exchange, Yes Cough (dry cough), No Wheezes, No Ronchi, No Stridor, No Labored Respirations, No Retractions, No Use of Accessory Muscles, No Other Abnormal Lung Sounds Heart: Yes Regular, No Murmur Abdomen: Yes Normal Bowel Sounds (sounds in all quadrants), No Tenderness (nontender to palpate in all quadrants), No Peritoneal Signs Skin: No Rash, No Edema Neurologic: Alert and oriented 3, no deficits. Musculoskeletal: Unremarkable. No cce. + 2 pulses in all extremities, no neurovascular compromise ED Course Vital Signs 05/29/18 15:17 Temperature 98.5 F Pulse Rate 104 H Respiratory 16 Rate Blood Pressure 122/83 O2 Sat by Pulse 99 Oximetry Vital Signs 05/29/18 05/29/18 15:17 23:16 Temperature 98.5 F Pulse Rate 104 H 84 Respiratory 16 Rate Blood Pressure 122/83 O2 Sat by Pulse 99 Oximetry - Reevaluation(s) Reevaluation #1: 05/29/18 23:16 Patient received prednisone 60 mg by mouth and emergency room for upper respiratory cough and congestion. ED Medical Decision Making - Medical Decision Making This is a 32-year-old female here reported for respiratory cough and congestion that she was exposed from her children. She was given prednisone 60 mg. Emergency room. Her lung sounds are clear and asymptomatic physical finding patient with viral syndrome and will be treated with Zyrtec, Flonase, Motrin and prednisone. I discussed diagnosis and treatment plan with her and she was understanding and discharged home with her family in stable condition with prescription for Zyrtec, Flonase, Motrin and prednisone. Vital signs stable she is afebrile and in no acute distress. Critical care attestation.: If time is entered above; I have spent that time in minutes in the direct care of this critically ill patient, excluding procedure time. ED Disposition Clinical Impression: Acute viral syndrome, Cough in adult patient Disposition: - TO HOME OR SELFCARE Is pt being admited?: No Does the pt Need Aspirin: No Condition: Stable Instructions: Viral Syndrome (ED), Acute Cough (ED) Additional Instructions: Please follow-up with a primary care physician in 4 days Pain medication as prescribed Increase fluid intake If you condition worsens, return to the emergency room otherwise follow-up with primary care Referrals: PITO AYOUB [Other] - 06/02/18 Forms: Work/School Release Form(ED)
[2018-05-30 05:51] VITALS: BP 118/76
== END 2018-05-30 00:15 | disposition home or self-care (01) ==
LOC: ED 15:02
DX: B34.9 Viral infection, unspecified (principal); Z98.51 Tubal ligation status; Z90.89 Acquired absence of other organs
CPT/HCPCS: 99282; J7512

== ENCOUNTER 2018-10-27 10:18 | Emergency (ER) | payer MEDICAID ==
[2018-10-27 11:01] VITALS: BP 125/83
[2018-10-27 11:29] LABS: Bacteria,Urine 1+ /HPF (Negative); Bilirubin,Urine NEG (Negative); Blood,Urine NEG (Negative); Color,Urine Yellow (Yellow); Mucus,Urine 1+ /HPF; Protein,Urine <15 mg/dL mg/dL (Negative)
[2018-10-27 12:01] LABS: Basophils # (Auto) 0.1 K/mm3 (0.0-0.1); Eosinophils # (Auto) 0.1 K/mm3 (0.0-0.4); Eosinophils % (Auto) 1.9 % (0.0-4.3); Hematocrit 38.1 % (30.3-42.9); Hemoglobin 12.9 gm/dl (10.1-14.3); Lymphocytes # (Auto) 2.9 K/mm3 (1.2-5.4); Lymphocytes % (Auto) 47.5 % (13.4-35.0); Mean Corpuscular HGB Conc 34 % (30-34); Mean Corpuscular Volume 94 fl (79-97); Monocytes # (Auto) 0.4 K/mm3 (0.0-0.8); Monocytes % (Auto) 6.3 % (0.0-7.3); Platelet Count 278 K/mm3 (140-440); Red Blood Count 4.05 M/mm3 (3.65-5.03); Red Cell Distribution Width 14.5 % (13.2-15.2)
[2018-10-27 12:24] LABS: Alanine Aminotransferase 11 units/L (7-56); Albumin 4.1 g/dL (3.9-5); BUN/Creatinine Ratio 11; Blood Urea Nitrogen 8 mg/dL (7-17); Calcium 9.1 mg/dL (8.4-10.2); Hemolysis Index 4
== END 2018-10-27 12:40 | disposition left against medical advice (07) ==
LOC: ED 10:18
DX: M54.5 Low back pain (principal); Z53.21 Procedure and treatment not carried out due to patient leaving prior to being seen by health care provider
CPT/HCPCS: 36415; 80053; 81001; 85025

== ENCOUNTER 2018-11-30 19:46 | Emergency (ER) | payer MEDICAID ==
[2018-11-30 21:34] VITALS: BP 108/81
--- NOTE | 2018-11-30 21:41 | Emergency Department Report ---
Chief Complaint: Fever Stated Complaint: COLD SX AND FATIGUE Time Seen by Provider: 11/30/18 21:32 - HPI History of Present Illness: 33 y/o female comes in for cold like symptoms for 1 day. No fever. No abd pain or n/v Nasal congestion, runny nose sneezing and fatigue. - ROS Review of Systems: + nasal comgestion, running nose, sneezing fatigue - Exam Physical Exam: Axo times tree Resp CTA RRR MSE screening note: Focused history and physical exam performed. Due to findings the following was ordered: Recommend over the counter cold any flu medication to treat symptoms. ED Disposition for MSE Clinical Impression: Allergic rhinitis Disposition: DC-01 TO HOME OR SELFCARE Is pt being admited?: No Does the pt Need Aspirin: No Condition: Stable Instructions: Allergic Rhinitis (ED) Additional Instructions: Recommend Over the counter medication
== END 2018-11-30 23:13 | disposition home or self-care (01) ==
LOC: ED 19:46
DX: J30.9 Allergic rhinitis, unspecified (principal)
CPT/HCPCS: 99282